=== PATIENT | female | born 1965 | race Caucasian/White ===

== ENCOUNTER → 2019-04-10 16:05 | Outpatient (CLI) | payer OTHER, SELFPAY ==
[2019-03-19 13:46] VITALS: BMI 27.8
[2019-04-10 17:52] LABS: Anion Gap 7 (5-15); BUN 11 mg/dL (7-18); BUN/Creat Ratio 15.6 RATIO (10-20); Calcium,Total 8.7 mg/dL (8.5-10.1); Chloride 107 mmol/L (98-107); Cholesterol 219 mg/dL (200); EST Glomerular Filtration Rate 92 mL/min (>60); Est Glom Filt Rate - Afr Amer 112 mL/min (>60); Glucose 75 mg/dL (74-106); High Density Lipoprotein 47 mg/dL; Potassium 3.7 mmol/L (3.5-5.1); Sodium Level 142 mmol/L (136-145); Triglycerides 163 mg/dL; Very Low Density Lipoprotein 33 mg/dL (5-40)
[2019-04-19 12:59] LABS: HPV Reflexed? NOT INDICATED
== END ==
PROVIDERS: Family Provider Family Medicine; PCP Family Medicine; Referring Provider Family Medicine; Visit Provider Family Medicine
DX: Z00.00 Encounter for general adult medical examination without abnormal findings (principal); Z12.4 Encounter for screening for malignant neoplasm of cervix
CPT/HCPCS: 36415; 80048; 80061; 88175; G0145

== ENCOUNTER 2020-04-21 09:45 | Emergency (ER) | payer OTHER, SELFPAY ==
[2019-03-19 13:46] VITALS: BMI 27.8
[2020-04-21 09:46] VITALS: BP 111/69; PULSE 83; RESP 16; TEMP 36.6; O2SAT 99; BMI 27.4
--- NOTE | 2020-04-21 09:54 | RAD_ITS ---
STUDY: X-RAY - RIGHT KNEE REASON FOR EXAM: Female, 55 years old. FALL LAST NIGHT, RIGHT KNEE PAIN TECHNIQUE: 4 view(s) of the knee. COMPARISON: None. FINDINGS: Normal visualized distal femur. Normal visualized proximal tibia and fibula. Normal proximal tibiofibular articulation. Normal medial femorotibial compartment. Normal lateral femorotibial compartment. Normal patellofemoral articulation. Normal patellar clefts in the sunrise view of the patella. Positive for joint effusion in the suprapatellar bursa. The soft tissue structures are unremarkable. RAD/Knee 4 or More Views IMPRESSION: Joint effusion in suprapatellar bursa but no suspicious acute fracture or dislocation of the right knee. Electronically Signed: Ignacio Richards MD at 10:18 EDT , Service support ,
--- NOTE | 2020-04-21 09:55 | ED.VISSUMM ---
- ER Visit Summary Date of Service: 04/21/20 Chief Complaint: Right knee pain History of Present Illness: The patient is a 55 F presenting with right knee pain. Patient fell down 3 steps last night. She states she was carrying her grandson and missed the first step. She did not hit her head or lose consciousness. She complains of right knee and right ankle pain. She is able to ambulate with pain. She tried ibuprofen at home. Denies other injuries. Physical Examination: Vitals are stable. Patient is afebrile. Alert no acute distress. HEENT exam is unremarkable. Neck is nontender Lungs are clear and equal bilaterally. Heart is regular rate and rhythm. Extremities mild diffuse tenderness right knee with painful range of motion. Quadricep mechanism intact. Mild tenderness right lateral ankle. Normal pulses. Skin is warm and dry. No focal neurologic deficit. Remainder of exam is unremarkable. Emergency Department Course and Treatment: Right ankle x-ray shows normal x-ray examination of the right ankle. Right knee xray shows joint effusion in suprapatellar bursa but no suspicious acute fracture or dislocation of the right knee. Patient declined crutches. She was given a prescription for [place]. Advised to ice and elevate. Advised to follow-up with primary care physician. Advised return to ED for worsening complaints. Disposition: Discharge home Impression: Right knee sprain status post fall This note was generated with [employer] dictation software. It may contain incorrect words, spelling, and punctuation that were not noted in review of the chart prior to signing ED Disposition - Plan for ED Patient: Instructions: ED Sprain Knee Prescriptions: Hydrocodone Bitart/Apap 5-325 [[place] 5MG-325MG] 1 tab PO Q6H PRN PRN 3 Days #10 tab PRN Reason: Pain Prescription Printed Referrals: Julia Yang MD [Primary Care Provider] -
--- NOTE | 2020-04-21 10:00 | RAD_ITS ---
STUDY: X-RAY - RIGHT ANKLE REASON FOR EXAM: Female, 55 years old. FALL LAST NIGHT, RIGHT ANKLE PAIN TECHNIQUE: 3 view(s) of the ankle. COMPARISON: None. FINDINGS: Normal visualized distal tibia and fibula. Normal medial and lateral malleoli. Normal tibiotalar articulation and ankle mortise. Normal visualized talus and calcaneus. The visualized subtalar, talonavicular, calcaneocuboid and tarsal articulations are normal. The soft tissue structures are unremarkable. RAD/Ankle min 3 Views IMPRESSION: Normal x-ray examination of the right ankle. Electronically Signed: Ignacio Richards MD at 10:15 EDT , Service support ,
--- NOTE | 2020-04-21 10:24 | DCINST.ED_ITS ---
ED Disposition - Plan for ED Patient: Instructions: ED Sprain Knee Prescriptions: Hydrocodone Bitart/Apap 5-325 [[place] 5MG-325MG] 1 tab PO Q6H PRN PRN 3 Days #10 tab PRN Reason: Pain Prescription Printed Referrals: Julia Yang MD [Primary Care Provider] -
== END 2020-04-21 10:40 | disposition home or self-care (01) ==
PROVIDERS: Emergency Provider Emergency Medicine; PCP Family Medicine
DX: S83.91XA Sprain of unspecified site of right knee, initial encounter (principal); F17.200 Nicotine dependence, unspecified, uncomplicated; W10.9XXA Fall (on) (from) unspecified stairs and steps, initial encounter
CPT/HCPCS: 73564; 73610; 99282